=== PATIENT | male | born 1990 | race Hispanic/Latino ===

== ENCOUNTER 2016-05-22 21:42 | Emergency (ER) | payer OTHER ==
[2016-05-22 22:38] LABS: Urine Drugs of Abuse Note Disclamer
--- NOTE | 2016-05-22 22:56 | Cat Scan Report ---
FINAL REPORT PROCEDURE: CT HEAD/BRAIN WO CON TECHNIQUE: Computerized tomography of the head was performed without contrast material. HISTORY: new onset seizure COMPARISON: No prior studies are available for comparison. FINDINGS: Skull and scalp: Normal. Paranasal sinuses: There is fluid in the maxillary sinuses bilaterally.. Ventricles and subarachnoid spaces: Normal. Cerebrum: No evidence of hemorrhage, acute infarction or mass . Cerebellum and brainstem: No evidence of hemorrhage, acute infarction or mass. Vasculature: Normal. Comments: None. IMPRESSION: There is no intracranial abnormality. There is bilateral maxillary sinusitis.
[2016-05-22 23:09] LABS: Basophils % (Auto) 0.4 % (0.0-1.8); Eosinophils % (Auto) 4.4 % (0.0-4.3); Hematocrit 45.1 % (35.5-45.6); Hemoglobin 15.5 gm/dl (11.8-15.2); Mean Corpuscular HGB Conc 34 % (32-34); Mean Corpuscular Hemoglobin 30 pg (28-32); Mean Corpuscular Volume 88 fl (84-94); Platelet Count 229 K/mm3 (140-440); Red Blood Count 5.14 M/mm3 (3.65-5.03); Red Cell Distribution Width 12.9 % (13.2-15.2)
[2016-05-22 23:29] LABS: BUN/Creatinine Ratio 8.18; Blood Urea Nitrogen 9 mg/dL (9-20); Calcium 9.3 mg/dL (8.4-10.2); Carbon Dioxide 25 mmol/L (22-30); Chloride 103.2 mmol/L (98-107); Glucose 82 mg/dL (75-100); Magnesium 2.2 mg/dL (1.7-2.3); Sodium 143 mmol/L (137-145)
[2016-05-22 23:56] LABS: Anion Gap 19 mmol/L
--- NOTE | 2016-05-23 | Emergency Department Report ---
ED Seizure HPI - General Chief Complaint: Seizure Stated Complaint: SEIZURE Time Seen by Provider: 05/22/16 21:58 Source: patient, EMS Mode of arrival: Stretcher Limitations: No Limitations - History of Present Illness Initial Comments: 26-year-old male noticed a few past medical history presents to the hospital complaining of seizure. Patient has not had a seizure in the past. He is currently on Suboxone and was placed on Klonopin earlier this month. Patient ran out of Klonopin 1 week ago. History of opiate abuse in the past. Denies current substance abuse or alcohol abuse. No preceding symptoms prior to seizure. Patient had a generalized clonic tonic seizure for approximately 2 minutes followed by post ictal state. Patient is currently alert and oriented 3. Denies tongue laceration or urinary continence. denies symptoms currently. no pain reported - Related Data Previous Rx's Medication Instructions Recorded Last Taken Type Albuterol Sulfate [Ventolin HFA] 2 puff IH Q4H PRN #1 hfa.aer.ad 10/23/13 Unknown Rx Azithromycin [Zithromax Z-CLEMENT] 250 mg PO DAILY #6 tablet 10/23/13 Unknown Rx predniSONE [Deltasone] 3 tab PO QDAY #15 tab 10/23/13 Unknown Rx clonazePAM [ Klonopin] 0.5 mg PO BID #14 tab 05/23/16 Unknown Rx Allergies Allergy/AdvReac Type Severity Reaction Status Date / Time No Known Allergies Allergy Verified 05/22/16 21:55 ED Review of Systems ROS: Stated complaint: SEIZURE Other details as noted in HPI Comment: All other systems reviewed and negative Other: Constitutional: No fevers chills Eyes: No eye pain visual changes ENT: No ear pain or throat pain Neck: Denies pain Respiratory: Denies cough wheezing shortness of breath Cardiovascular: Denies chest pain, palpitations, syncope GI: Denies abdominal pain, nausea, vomiting, diarrhea : Denies dysuria, Musculoskeletal: Denies back pain Skin: Denies rash, lesions, erythema Neurologic: Denies headache, numbness, weakness Psychiatric: Denies suicidal ideation, hallucinations ED Past Medical Hx - Past Medical History Hx Seizures: Yes (klonpin withdraw/cocaine + on 05/22/16 visit) Additional medical history: pneumothorax - Surgical History Past Surgical History?: No Additional Surgical History: R. shoulder repair - Social History Smoking Status: Never Smoker Substance Use Type: Alcohol - Medications Home Medications: Home Medications Medication Instructions Recorded Confirmed Last Taken Type Albuterol Sulfate [Ventolin HFA] 2 puff IH Q4H PRN #1 hfa.aer.ad 10/23/13 Unknown Rx Azithromycin [Zithromax Z-CLEMENT] 250 mg PO DAILY #6 tablet 10/23/13 Unknown Rx predniSONE [Deltasone] 3 tab PO QDAY #15 tab 10/23/13 Unknown Rx clonazePAM [ Klonopin] 0.5 mg PO BID #14 tab 05/23/16 Unknown Rx ED Physical Exam - General Limitations: No Limitations - Other Other exam information: General: No limitations, patient is alert in no acute distress Head exam: Atraumatic, normocephalic Eyes exam: Normal appearance, pupils equal reactive to light, extraocular movements intact ENT: Moist mucous membrane, normal oropharynx Neck exam: Normal inspection, full range of motion, no meningismus nontender Respiratory exam: Clear to auscultation bilateral, no wheezes, rales, crackles Cardiovascular: Normal rate and rhythm, normal heart sounds Abdomen: Soft, nondistended, and nontender, with normal bowel sounds, no rebound, or guarding Extremity: Full range of motion normal inspection no deformity Back: Normal Inspection, full range of motion, no tenderness Neurologic: Alert, oriented x3, cranial nerves intact, no motor or sensory deficit Psychiatric: normal affect, normal mood Skin: Warm, dry, intact ED Course Vital Signs 05/22/16 22:00 Temperature 98 F Pulse Rate 89 Respiratory 16 Rate Blood Pressure 134/76 O2 Sat by Pulse 96 Oximetry ED Medical Decision Making - Lab Data Result diagrams: 05/22/16 22:38 05/22/16 22:38 Lab Results 05/22/16 05/22/16 05/22/16 Range/Units 22:20 22:27 22:38 WBC 11.0 (4.5-11.0) K/mm3 RBC 5.14 H (3.65-5.03) M/mm3 Hgb 15.5 H (11.8-15.2) gm/dl Hct 45.1 (35.5-45.6) % MCV 88 (84-94) fl MCH 30 (28-32) pg MCHC 34 (32-34) % RDW 12.9 L (13.2-15.2) % Plt Count 229 (140-440) K/mm3 Lymph % (Auto) 19.3 (13.4-35.0) % [place] % (Auto) 9.1 H (0.0-7.3) % Eos % (Auto) 4.4 H (0.0-4.3) % Baso % (Auto) 0.4 (0.0-1.8) % Lymph # 2.1 (1.2-5.4) K/mm3 [place] # 1.0 H (0.0-0.8) K/mm3 Eos # 0.5 H (0.0-0.4) K/mm3 Baso # 0.0 (0.0-0.1) K/mm3 Seg Neutrophils % 66.8 (40.0-70.0) % Seg Neutrophils # 7.3 (1.8-7.7) K/mm3 Sodium (137-145) mmol/L Potassium (3.6-5.0) mmol/L Chloride (98-107) mmol/L Carbon Dioxide (22-30) mmol/L Anion Gap mmol/L BUN (9-20) mg/dL Creatinine (0.8-1.5) mg/dL Estimated GFR ml/min BUN/Creatinine Ratio % Glucose (75-100) mg/dL POC Glucose 130 H (70-105) Calcium (8.4-10.2) mg/dL Magnesium (1.7-2.3) mg/dL Urine Opiates Screen Presumptive negative Urine Methadone Screen Presumptive negative Ur Barbiturates Screen Presumptive negative Ur Phencyclidine Scrn Presumptive negative Ur Amphetamines Screen Presumptive negative U Benzodiazepines Scrn Presumptive negative Urine Cocaine Screen Presumptive positive U Marijuana (THC) Screen Presumptive negative Drugs of Abuse Note Disclamer 05/22/16 Range/Units 22:38 WBC (4.5-11.0) K/mm3 RBC (3.65-5.03) M/mm3 Hgb (11.8-15.2) gm/dl Hct (35.5-45.6) % MCV (84-94) fl MCH (28-32) pg MCHC (32-34) % RDW (13.2-15.2) % Plt Count (140-440) K/mm3 Lymph % (Auto) (13.4-35.0) % [place] % (Auto) (0.0-7.3) % Eos % (Auto) (0.0-4.3) % Baso % (Auto) (0.0-1.8) % Lymph # (1.2-5.4) K/mm3 [place] # (0.0-0.8) K/mm3 Eos # (0.0-0.4) K/mm3 Baso # (0.0-0.1) K/mm3 Seg Neutrophils % (40.0-70.0) % Seg Neutrophils # (1.8-7.7) K/mm3 Sodium 143 (137-145) mmol/L Potassium 4.0 (3.6-5.0) mmol/L Chloride 103.2 (98-107) mmol/L Carbon Dioxide 25 (22-30) mmol/L Anion Gap 19 mmol/L BUN 9 (9-20) mg/dL Creatinine 1.1 (0.8-1.5) mg/dL Estimated GFR > 60 ml/min BUN/Creatinine Ratio 8.18 % Glucose 82 (75-100) mg/dL POC Glucose (70-105) Calcium 9.3 (8.4-10.2) mg/dL Magnesium 2.2 (1.7-2.3) mg/dL Urine Opiates Screen Urine Methadone Screen Ur Barbiturates Screen Ur Phencyclidine Scrn Ur Amphetamines Screen U Benzodiazepines Scrn Urine Cocaine Screen U Marijuana (THC) Screen Drugs of Abuse Note - Radiology Data Radiology results: report reviewed (CTA: Bilateral maxillary sinusitis no acute findings) - Medical Decision Making Patient seizure could be related to both Klonopin withdrawal possible cocaine use. ED workup otherwise unremarkable. Will be treated for incidental bilateral maxillary sinusitis of the abdominal CT. Patient given Klonopin here. Patient will be given a week's supply of Klonipin and to follow-up with his physician for prescription of a taper to prevent withdrawal seizures. He was encouraged to not abuse any substances including cocaine. Neurology follow- up also be encouraged. With this family outside the room patient admits to using cocaine a couple days ago but states it is not a regular occurrence. - Differential Diagnosis new-onset seizure, intracranial mass, drug reaction, Critical Care Time: No Critical care attestation.: If time is entered above; I have spent that time in minutes in the direct care of this critically ill patient, excluding procedure time. ED Disposition Clinical Impression: Seizure, Benzodiazepine withdrawal with complication, Cocaine use Disposition: DISCHARGED TO HOME OR SELFCARE Is pt being admited?: No Does the pt Need Aspirin: No Condition: Stable Instructions: New-Onset Seizure in Adults (ED), Benzodiazepine Abuse (ED), Cocaine Abuse (ED) Additional Instructions: Take the medication as prescribed. Return if symptoms worsen. Follow-up with your doctor before the medication runs out. You may need additional prescription for Klonopin gradual decrease in dose to prevent withdrawal seizures. Prescriptions: clonazePAM [ Klonopin] 0.5 mg PO BID #14 tab Referrals: your, psychiatrist [Other] - 3-5 Days TIM HUTSON MD [Staff Physician] - 3-5 Days (neurologist) Time of Disposition: 00:13
[2016-05-23 00:36] VITALS: BP 134/67
== END 2016-05-23 00:38 | disposition home or self-care (01) ==
LOC: ED 21:42
DX: R56.9 Unspecified convulsions (principal); F19.239 Other psychoactive substance dependence with withdrawal, unspecified; F14.90 Cocaine use, unspecified, uncomplicated
CPT/HCPCS: 36415; 70450; 80048; 82962; 83735; 85025; 99284; G0479; 80301

== ENCOUNTER 2017-07-28 06:45 | Inpatient (IN) | payer OTHER ==
[2017-07-28] MEDS ORDERED: ATIVAN IV ONE ×2 (07:56→21:44)
[2017-07-28] MEDS ORDERED: NACL 0.9% 1000 ML 2,000 ML IV ONE (07:56)
[2017-07-28 08:21] LABS: Basophils # (Auto) 0.1 K/mm3 (0.0-0.1); Basophils % (Auto) 0.4 % (0.0-1.8); Eosinophils % (Auto) 0.1 % (0.0-4.3); Hematocrit 48.6 % (35.5-45.6); Hemoglobin 16.3 gm/dl (11.8-15.2); Lymphocytes # (Auto) 1.7 K/mm3 (1.2-5.4); Lymphocytes % (Auto) 12.3 % (13.4-35.0); Mean Corpuscular HGB Conc 34 % (32-34); Mean Corpuscular Hemoglobin 29 pg (28-32); Mean Corpuscular Volume 87 fl (84-94); Monocytes # (Auto) 1.1 K/mm3 (0.0-0.8); Platelet Count 353 K/mm3 (140-440); Red Blood Count 5.57 M/mm3 (3.65-5.03); Red Cell Distribution Width 13.5 % (13.2-15.2)
[2017-07-28 08:38] LABS: Alanine Aminotransferase 37 units/L (7-56); Albumin 4.8 g/dL (3.9-5); BUN/Creatinine Ratio 20; Blood Urea Nitrogen 20 mg/dL (9-20); Calcium 9.8 mg/dL (8.4-10.2); Hemolysis Index 27
[2017-07-28] MEDS ORDERED: BENADRYL ONE (09:33)
[2017-07-28] MEDS ORDERED: BENADRYL IV ONE ×2 (09:34→19:40)
[2017-07-28] MEDS ORDERED: COGENTIN IM ONE (09:36)
--- NOTE | 2017-07-28 09:46 | Cat Scan Report ---
CT HEAD WITHOUT CONTRAST: HISTORY: Headache. TECHNIQUE: Sequential 2.5mm CT images. COMPARISON: 05/22/16. FINDINGS: Cerebral Parenchyma: Within normal limits. Cerebellum: Within normal limits. Brainstem: Within normal limits. Ventricles: Normal. Sella: Normal. Extra-axial spaces: Normal. Basal Cisterns: Normal. Intracranial Hemorrhage: None. Midline Shift: None. Calvarium: Normal. Sinuses: There is moderate mucosal thickening in the ethmoid and maxillary sinuses. Sinus disease has improved since 2016. Mastoid Air Cells: Normal. Visualized Orbits: Normal. IMPRESSION: Cranial CT scan within normal limits. Mild chronic sinus disease.
[2017-07-28] MEDS ORDERED: NACL 0.9% 1000 ML 1,000 ML IV ONE (12:59)
[2017-07-28 13:28] LABS: Bacteria,Urine 1+ /HPF (Negative); Bilirubin,Urine NEG (Negative); Blood,Urine NEG (Negative); Color,Urine Yellow (Yellow); Mucus,Urine FEW /HPF; Protein,Urine <15 mg/dL mg/dL (Negative); Urobilinogen,Urine < 2.0 mg/dL (<2.0)
[2017-07-28 13:40] LABS: Cannabinoid Screen,Urine PRESUMPTIVE NEGATIVE; Cocaine Screen,Urine PRESUMPTIVE NEGATIVE; Methadone Screen,Urine PRESUMPTIVE NEGATIVE; Opiate Screen,Urine PRESUMPTIVE NEGATIVE
[2017-07-28 14:00] LABS: Amphetamine Screen,Urine PRESUMPTIVE POSITIVE; Benzodiazepines Screen,Urine PRESUMPTIVE POSITIVE
--- NOTE | 2017-07-28 16:43 | Emergency Department Report ---
HPI - General Chief Complaint: Medical Clearance Time Seen by Provider: 07/28/17 07:55 - HPI HPI: The patient is a 27-year-old male who presents from [place] for medical clearance. The patient presented to [place] for treatment of methamphetamine abuse, and developed agitation and AMS. The patient admits to constant severe dizziness and generalized weakness since last night, exacerbated with position changes and exertion. The patient denies fever, head injury, headache, neck pain, neck stiffness, neuro deficits, homicidal ideations , or auditory or visual hallucinations. ED Past Medical Hx - Past Medical History Previous Medical History?: Yes Hx Seizures: Yes (klonpin withdraw/cocaine + on 05/22/16 visit) Additional medical history: pneumothorax - Surgical History Past Surgical History?: Yes Additional Surgical History: R. shoulder repair - Social History Smoking Status: Never Smoker Substance Use Type: Methamphetamines - Medications Home Medications: Home Medications Medication Instructions Recorded Confirmed Last Taken Type Albuterol Sulfate [Ventolin HFA] 2 puff IH Q4H PRN #1 hfa.aer.ad 10/23/13 Unknown Rx Azithromycin [Zithromax Z-CLEMENT] 250 mg PO DAILY #6 tablet 10/23/13 Unknown Rx predniSONE [Deltasone] 3 tab PO QDAY #15 tab 10/23/13 Unknown Rx clonazePAM [ Klonopin] 0.5 mg PO BID #14 tab 05/23/16 Unknown Rx ED Review of Systems ROS: Stated complaint: WITHDRAWLS Other details as noted in HPI Constitutional: reports dizziness and weakness denies: fever ENT: denies: throat or neck pain Respiratory: denies: cough, shortness of breath Cardiovascular: denies: chest pain Endocrine: denies unexplained weight loss or gain Gastrointestinal: denies: abdominal pain, nausea Genitourinary: denies: dysuria Musculoskeletal: denies: leg swelling Skin: denies: rash Neurological: denies: headache Hematological/Lymphatic: denies: easy bleeding or easy bruising Psych: agitation reported per [facility] denies sadness or hopelessness Physical Exam - Physical Exam Vital Signs: Vital Signs 07/28/17 07/28/17 07/28/17 07:38 07:53 08:00 Temperature 98.8 F Pulse Rate 129 H 103 H Respiratory 18 19 Rate Blood Pressure 87/63 127/63 O2 Sat by Pulse 97 96 95 Oximetry 03/01/0707/28/17 07/28/17 08:05 08:31 09:00 Temperature Pulse Rate 91 H 84 Respiratory 14 13 16 Rate Blood Pressure 125/57 129/69 O2 Sat by Pulse 96 94 96 Oximetry 07/28/17 07/28/17 07/28/17 09:31 10:01 10:31 Temperature Pulse Rate 115 H Respiratory 23 27 H 15 Rate Blood Pressure 92/75 117/49 130/68 O2 Sat by Pulse 95 98 94 Oximetry 07/28/17 07/28/17 07/28/17 11:01 11:31 12:01 Temperature Pulse Rate 102 H 107 H Respiratory 28 H 19 22 Rate Blood Pressure 122/69 147/63 147/63 O2 Sat by Pulse 95 96 97 Oximetry 07/28/17 07/28/17 07/28/17 12:31 13:01 13:31 Temperature Pulse Rate 90 111 H 95 H Respiratory 29 H 19 23 Rate Blood Pressure 108/53 108/53 157/92 O2 Sat by Pulse Oximetry 07/28/17 07/28/17 14:01 14:31 Temperature Pulse Rate 84 84 Respiratory 14 14 Rate Blood Pressure 125/97 125/97 O2 Sat by Pulse Oximetry Physical Exam: General: well-nourished, well-developed, no acute distress Head: Normocephalic, atraumatic Eyes: normal sclera, EOMI, PERRL ENT: Mucous membranes are pale and dry Neck: No neck stiffness, no cervical adenopathy Respiratory: Breath sounds equal bilaterally, no wheezing, rales, or rhonchi Cardio: S1 and S2 present, no murmurs, rubs, gallops, capillary refill is delayed Abdomen: Normoactive bowel sounds, soft abdomen, no tenderness Chest WALL/Back: No tenderness to palpation of the chest wall, no CVA tenderness with percussion Musc: No pitting edema Skin: No rash Neuro: Patient drowsy, arousable, gag reflex intact, no obvious gross sensation or motor deficits on neuro exam Psych: Normal affect ED Course Vital Signs 07/28/17 07/28/17 07/28/17 07:38 07:53 08:00 Temperature 98.8 F Pulse Rate 129 H 103 H Respiratory 18 19 Rate Blood Pressure 87/63 127/63 O2 Sat by Pulse 97 96 95 Oximetry 07/28/17 07/28/17 07/28/17 08:05 08:31 09:00 Temperature Pulse Rate 91 H 84 Respiratory 14 13 16 Rate Blood Pressure 125/57 129/69 O2 Sat by Pulse 96 94 96 Oximetry 07/28/17 07/28/17 07/28/17 09:31 10:01 10:31 Temperature Pulse Rate 115 H Respiratory 23 27 H 15 Rate Blood Pressure 92/75 117/49 130/68 O2 Sat by Pulse 95 98 94 Oximetry 07/28/17 07/28/17 07/28/17 11:01 11:31 12:01 Temperature Pulse Rate 102 H 107 H Respiratory 28 H 19 22 Rate Blood Pressure 122/69 147/63 147/63 O2 Sat by Pulse 95 96 97 Oximetry 07/28/17 07/28/17 07/28/17 12:31 13:01 13:31 Temperature Pulse Rate 90 111 H 95 H Respiratory 29 H 19 23 Rate Blood Pressure 108/53 108/53 157/92 O2 Sat by Pulse Oximetry 07/28/17 07/28/17 14:01 14:31 Temperature Pulse Rate 84 84 Respiratory 14 14 Rate Blood Pressure 125/97 125/97 O2 Sat by Pulse Oximetry ED Medical Decision Making - Lab Data Result diagrams: 07/28/17 08:03 07/28/17 08:03 - Medical Decision Making The patient was seen and examined by myself. The patient is placed on a playground monitor and continuous pulse ox. On initial evaluation, the patient was found to be in no distress. Evaluation orders were placed. The patient given Ativan for psychomotor agitation, and IV Benadryl and IM Cogentin for treatment of suspected EPS symptoms. The patient is given normal saline fluid bolus for treatment of dehydration and tachycardia. The patient is given Haldol prior to arrival. Lab results reveal leukocytosis and elevated creatinine of 5400, consistent with acute rhabdomyolysis. The patient is given additional normal saline fluid bolus for treatment of his rhabdomyolysis. CT scan the head is negative for acute intracranial disease process. Dr. Sepulveda the physician on- call for the hospitalist service was contacted. He agreed to admit the patient for further treatment and close monitoring. The ED admit order was placed. The patient was admitted in guarded condition. Critical care attestation.: If time is entered above; I have spent that time in minutes in the direct care of this critically ill patient, excluding procedure time. ED Disposition Clinical Impression: Dehydration, Amphetamine abuse Rhabdomyolysis Qualifiers: Rhabdomyolysis type: non-traumatic Qualified Code(s): M62.82 - Rhabdomyolysis Altered mental status Qualifiers: Altered mental status type: delirium Qualified Code(s): R41.0 - Disorientation , unspecified Disposition: 09 OP ADMIT IP TO THIS HOSP Is pt being admited?: Yes Does the pt Need Aspirin: Yes Condition: Serious Referrals: PRIMARY CARE, [Primary Care Provider] - 3-5 Days Time of Disposition: 16:55
[2017-07-28] MEDS ORDERED: ATIVAN ONE (21:16)
--- NOTE | 2017-07-28 23:14 | History and Physical Report ---
History of Present Illness Date of examination: 07/28/17 Date of admission: 07/28/17 Chief complaint: AMS 1 day History of present illness: - HPI HPI: The patient is a 27-year-old male who presents from [place] for medical clearance. The patient presented to [place] for treatment of methamphetamine abuse, and developed agitation and AMS. The patient admits to constant severe dizziness and generalized weakness since last night, exacerbated with position changes and exertion. The patient denies fever, head injury, headache, neck pain, neck stiffness, neuro deficits, homicidal ideations , or auditory or visual hallucinations. Past Medical History Previous Medical History?: Yes Hx Seizures: Yes (klonpin withdraw/cocaine + on 05/22/16 visit) Additional medical history: pneumothorax Surgical History Past Surgical History?: Yes Additional Surgical History: R. shoulder repair - Social History Smoking Status: Never Smoker Substance Use Type: Methamphetamines - Medications Home Medications: Home Medications Medication Instructions Recorded Confirmed Last Taken Type Albuterol Sulfate [Ventolin HFA] 2 puff IH Q4H PRN #1 hfa.aer.ad 10/23/13 Unknown Rx Azithromycin [Zithromax Z-CLEMENT] 250 mg PO DAILY #6 tablet 10/23/13 Unknown Rx predniSONE [Deltasone] 3 tab PO QDAY #15 tab 10/23/13 Unknown Rx clonazePAM [ Klonopin] 0.5 mg PO BID #14 tab 05/23/16 Unknown Rx Review of Systems ROS: Stated complaint: WITHDRAWLS Other details as noted in HPI Constitutional: reports dizziness and weakness denies: fever ENT: denies: throat or neck pain Respiratory: denies: cough, shortness of breath Cardiovascular: denies: chest pain Endocrine: denies unexplained weight loss or gain Gastrointestinal: denies: abdominal pain, nausea Genitourinary: denies: dysuria Musculoskeletal: denies: leg swelling Skin: denies: rash Neurological: denies: headache Hematological/Lymphatic: denies: easy bleeding or easy bruising Psych: agitation reported per [facility] denies sadness or hopelessness Medications and Allergies Allergies Allergy/AdvReac Type Severity Reaction Status Date / Time No Known Allergies Allergy Verified 07/28/17 07:42 Home Medications Medication Instructions Recorded Confirmed Last Taken Type No Known Home Medications [No 07/28/17 07/28/17 Unknown History Reported Home Medications] Exam - Constitutional Vitals: Temp Pulse Resp BP Pulse Ox 98.8 F 84 15 123/85 98 07/28/17 07:38 07/28/17 21:00 07/28/17 21:00 07/28/17 21:00 07/28/17 21:00 General appearance: Present: mild distress - EENT Eyes: Present: PERRL ENT: hearing intact, clear oral mucosa - Neck Neck: Present: supple - Cardiovascular Heart rate: 80 Rhythm: regular - Extremities Extremities: no ischemia, pulses intact Peripheral Pulses: within normal limits - Abdominal General gastrointestinal: Present: soft, non-tender Male genitourinary: Present: deferred - Rectal Rectal Exam: deferred - Integumentary Integumentary: Present: clear, warm, dry - Musculoskeletal Musculoskeletal: strength equal bilaterally - Psychiatric Psychiatric: agitated - Neurologic Neurologic: CNII-XII intact, gait normal - Allied Health Allied health notes reviewed: nursing, case management Results - Labs CBC & Chem 7: 07/28/17 08:03 07/28/17 08:03 Labs: Laboratory Last Values WBC 13.7 K/mm3 (4.5-11.0) H 07/28/17 08:03 RBC 5.57 M/mm3 (3.65-5.03) H 07/28/17 08:03 Hgb 16.3 gm/dl (11.8-15.2) H 07/28/17 08:03 Hct 48.6 % (35.5-45.6) H 07/28/17 08:03 MCV 87 fl (84-94) 07/28/17 08:03 MCH 29 pg (28-32) 07/28/17 08:03 MCHC 34 % (32-34) 07/28/17 08:03 RDW 13.5 % (13.2-15.2) 07/28/17 08:03 Plt Count 353 K/mm3 (140-440) 07/28/17 08:03 Lymph % (Auto) 12.3 % (13.4-35.0) L 07/28/17 08:03 [place] % (Auto) 8.0 % (0.0-7.3) H 07/28/17 08:03 Eos % (Auto) 0.1 % (0.0-4.3) 07/28/17 08:03 Baso % (Auto) 0.4 % (0.0-1.8) 07/28/17 08:03 Lymph # 1.7 K/mm3 (1.2-5.4) 07/28/17 08:03 [place] # 1.1 K/mm3 (0.0-0.8) H 07/28/17 08:03 Eos # 0.0 K/mm3 (0.0-0.4) 07/28/17 08:03 Baso # 0.1 K/mm3 (0.0-0.1) 07/28/17 08:03 Seg Neutrophils % 79.2 % (40.0-70.0) H 07/28/17 08:03 Seg Neutrophils # 10.8 K/mm3 (1.8-7.7) H 07/28/17 08:03 Sodium 142 mmol/L (137-145) 07/28/17 08:03 Potassium 4.2 mmol/L (3.6-5.0) 07/28/17 08:03 Chloride 100.2 mmol/L (98-107) 07/28/17 08:03 Carbon Dioxide 19 mmol/L (22-30) L 07/28/17 08:03 Anion Gap 27 mmol/L 07/28/17 08:03 BUN 20 mg/dL (9-20) 07/28/17 08:03 Creatinine 1.0 mg/dL (0.8-1.5) 07/28/17 08:03 Estimated GFR > 60 ml/min 07/28/17 08:03 BUN/Creatinine Ratio 20 % 07/28/17 08:03 Glucose 79 mg/dL (75-100) 07/28/17 08:03 Lactic Acid 1.30 mmol/L (0.7-2.0) 07/28/17 13:05 Calcium 9.8 mg/dL (8.4-10.2) 07/28/17 08:03 Total Bilirubin 0.60 mg/dL (0.1-1.2) 07/28/17 08:03 AST 101 units/L (5-40) H 07/28/17 08:03 ALT 37 units/L (7-56) 07/28/17 08:03 Alkaline Phosphatase 73 units/L (35-129) 07/28/17 08:03 Total Creatine Kinase 5461 units/L (55-170) H 07/28/17 13:05 Total Protein 8.3 g/dL (6.3-8.2) H 07/28/17 08:03 Albumin 4.8 g/dL (3.9-5) 07/28/17 08:03 Albumin/Globulin Ratio 1.4 % 07/28/17 08:03 TSH 1.140 mlU/mL (0.270-4.200) 07/28/17 08:03 Urine Color Yellow (Yellow) 07/28/17 13:09 Urine Turbidity Clear (Clear) 07/28/17 13:09 Urine pH 5.0 (5.0-7.0) 07/28/17 13:09 Ur Specific [place] 1.025 (1.003-1.030) 07/28/17 13:09 Urine Protein <15 mg/dl mg/dL (Negative) 07/28/17 13:09 Urine Glucose (UA) Neg mg/dL (Negative) 07/28/17 13:09 Urine Ketones 80 mg/dL (Negative) 07/28/17 13:09 Urine Blood Neg (Negative) 07/28/17 13:09 Urine Nitrite Neg (Negative) 07/28/17 13:09 Urine Bilirubin Neg (Negative) 07/28/17 13:09 Urine Urobilinogen < 2.0 mg/dL (<2.0) 07/28/17 13:09 Ur Leukocyte Esterase Neg (Negative) 07/28/17 13:09 Urine WBC (Auto) 1.0 /HPF (0.0-6.0) 07/28/17 13:09 Urine RBC (Auto) 2.0 /HPF (0.0-6.0) 07/28/17 13:09 Urine Bacteria (Auto) 1+ /HPF (Negative) 07/28/17 13:09 Urine Mucus Few /HPF 07/28/17 13:09 Urine Opiates Screen Presumptive negative 07/28/17 13:09 Urine Methadone Screen Presumptive negative 07/28/17 13:09 Ur Barbiturates Screen Presumptive negative 07/28/17 13:09 Ur Phencyclidine Scrn Presumptive negative 07/28/17 13:09 Ur Amphetamines Screen Presumptive positive 07/28/17 13:09 U Benzodiazepines Scrn Presumptive positive 07/28/17 13:09 Urine Cocaine Screen Presumptive negative 07/28/17 13:09 U Marijuana (THC) Screen Presumptive negative 07/28/17 13:09 Drugs of Abuse Note Disclamer 07/28/17 13:09 Plasma/Serum Alcohol < 0.01 % (0-0.07) 07/28/17 08:03 Short CBC 07/28/17 Range/Units 08:03 WBC 13.7 H (4.5-11.0) K/mm3 Hgb 16.3 H (11.8-15.2) gm/dl Hct 48.6 H (35.5-45.6) % Plt Count 353 (140-440) K/mm3 BMP 07/28/17 08:03 Sodium 142 Potassium 4.2 Chloride 100.2 Carbon Dioxide 19 L BUN 20 Creatinine 1.0 Glucose 79 Calcium 9.8 Cardiac Enzymes 07/28/17 07/28/17 07/28/17 Range/Units 08:03 13:05 23:43 Total Creatine Kinase 5402 H 5461 H 4396 H (55-170) units/L Liver Function 07/28/17 Range/Units 08:03 Total Bilirubin 0.60 (0.1-1.2) mg/dL AST 101 H (5-40) units/L ALT 37 (7-56) units/L Alkaline Phosphatase 73 (35-129) units/L Albumin 4.8 (3.9-5) g/dL Urine 07/28/17 Range/Units 13:09 Urine Color Yellow (Yellow) Urine pH 5.0 (5.0-7.0) Ur Specific [place] 1.025 (1.003-1.030) Urine Protein <15 mg/dl (Negative) mg/dL Urine Glucose (UA) Neg (Negative) mg/dL - Imaging and Cardiology EKG: report reviewed (NSR) Assessment and Plan Advance Directives: Yes (Full code) VTE prophylaxis?: Chemical Plan of care discussed with patient/family: Yes - Patient Problems (1) Rhabdomyolysis Current Visit: Yes Status: Acute Qualifiers: Rhabdomyolysis type: non-traumatic Qualified Code(s): M62.82 - Rhabdomyolysis Plan to address problem: IV fluids for now Monitor CK q12h (2) Encephalopathy acute Current Visit: Yes Status: Acute Plan to address problem: Sec to Polysubstance abuse and Withdrawal [facility] protocol (3) Amphetamine abuse Current Visit: Yes Status: Chronic Plan to address problem: Will get consult (4) Dehydration Current Visit: Yes Status: Acute Plan to address problem: IV fluids (5) DVT prophylaxis Current Visit: Yes Status: Acute Plan to address problem: On Lovenox
[2017-07-28] MEDS ORDERED: ZOFRAN IV PRN (23:16)
[2017-07-28] MEDS ORDERED: DILAUDID IV PRN (23:16)
[2017-07-28] MEDS ORDERED: TYLENOL PO PRN (23:16)
[2017-07-28] MEDS ORDERED: SODIUM CHLORIDE FLUSH SYRINGE 10 ML IV PRN (23:16)
[2017-07-28] MEDS ORDERED: PERCOCET 5/325 PO PRN (23:16)
[2017-07-28] MEDS ORDERED: D5NS 1,000 ML IV SCH (23:45)
[2017-07-29 07:58] LABS: Basophils % (Auto) 0.1 % (0.0-1.8); Hemoglobin 13.7 gm/dl (11.8-15.2); Lymphocytes # (Auto) 2.4 K/mm3 (1.2-5.4); Lymphocytes % (Auto) 18.4 % (13.4-35.0); Mean Corpuscular HGB Conc 33 % (32-34); Mean Corpuscular Hemoglobin 29 pg (28-32); Mean Corpuscular Volume 87 fl (84-94); Monocytes # (Auto) 1.3 K/mm3 (0.0-0.8); Monocytes % (Auto) 10.1 % (0.0-7.3); Platelet Count 299 K/mm3 (140-440); Red Blood Count 4.75 M/mm3 (3.65-5.03); Red Cell Distribution Width 13.4 % (13.2-15.2)
[2017-07-29 08:16] LABS: Alanine Aminotransferase 34 units/L (7-56); Albumin 4.1 g/dL (3.9-5); BUN/Creatinine Ratio 23; Blood Urea Nitrogen 16 mg/dL (9-20); Hemolysis Index 7
--- NOTE | 2017-07-29 09:05 | Progress Note ---
Assessment and Plan Assessment and plan: The patient is a 27-year-old male who presents from [place] for medical clearance. The patient presented to [place] for treatment of methamphetamine abuse, and developed agitation and AMS. The patient admits to constant severe dizziness and generalized weakness, exacerbated with position changes and exertion. T Rhabdomyolysis continue IVF, keep room cool toxic and metabolic Encephalopathy acute: Sec to Polysubstance abuse and Withdrawal continue supportive care Amphetamine abuse Will get consult cessation counseling was provided Dehydration IV fluids DVT prophylaxis On Lovenox History Interval history: has been somnolent, but received benzos no agitation, no fever, no vomitining, no seizure, no complaints of cp, sob or cough Hospitalist Physical - Constitutional Vitals: Temp Pulse Resp BP Pulse Ox 98.9 F 61 20 124/73 93 07/29/17 08:31 07/29/17 08:31 07/29/17 08:31 07/29/17 08:31 07/29/17 08:31 General appearance: Present: mild distress - EENT Eyes: Present: PERRL ENT: hearing intact - Neck Neck: Present: supple - Respiratory Respiratory effort: normal Respiratory: bilateral: CTA - Cardiovascular Rhythm: regular Heart Sounds: Present: S1 & S2 - Extremities Extremities: no ischemia Peripheral Pulses: within normal limits - Abdominal General gastrointestinal: soft, non-tender - Integumentary Integumentary: Present: clear, warm - Psychiatric Psychiatric: appropriate mood/affect, cooperative - Neurologic Neurologic: CNII-XII intact, moves all extremities Results - Labs CBC & Chem 7: 07/29/17 07:48 07/29/17 07:48 Labs: Laboratory Last Values WBC 13.1 K/mm3 (4.5-11.0) H 07/29/17 07:48 RBC 4.75 M/mm3 (3.65-5.03) 07/29/17 07:48 Hgb 13.7 gm/dl (11.8-15.2) 07/29/17 07:48 Hct 48.6 % (35.5-45.6) H 07/28/17 08:03 MCV 87 fl (84-94) 07/29/17 07:48 MCH 29 pg (28-32) 07/29/17 07:48 MCHC 33 % (32-34) 07/29/17 07:48 RDW 13.4 % (13.2-15.2) 07/29/17 07:48 Plt Count 299 K/mm3 (140-440) 07/29/17 07:48 Lymph % (Auto) 18.4 % (13.4-35.0) 07/29/17 07:48 [place] % (Auto) 10.1 % (0.0-7.3) H 07/29/17 07:48 Eos % (Auto) 0.0 % (0.0-4.3) 07/29/17 07:48 Baso % (Auto) 0.1 % (0.0-1.8) 07/29/17 07:48 Lymph # 2.4 K/mm3 (1.2-5.4) 07/29/17 07:48 [place] # 1.3 K/mm3 (0.0-0.8) H 07/29/17 07:48 Eos # 0.0 K/mm3 (0.0-0.4) 07/29/17 07:48 Baso # 0.0 K/mm3 (0.0-0.1) 07/29/17 07:48 Seg Neutrophils % 71.4 % (40.0-70.0) H 07/29/17 07:48 Seg Neutrophils # 9.4 K/mm3 (1.8-7.7) H 07/29/17 07:48 Sodium 140 mmol/L (137-145) 07/29/17 07:48 Potassium 4.2 mmol/L (3.6-5.0) 07/29/17 07:48 Chloride 102.8 mmol/L (98-107) 07/29/17 07:48 Carbon Dioxide 23 mmol/L (22-30) 07/29/17 07:48 Anion Gap 18 mmol/L 07/29/17 07:48 BUN 16 mg/dL (9-20) 07/29/17 07:48 Creatinine 0.7 mg/dL (0.8-1.5) L 07/29/17 07:48 Estimated GFR > 60 ml/min 07/29/17 07:48 BUN/Creatinine Ratio 23 % 07/29/17 07:48 Glucose 105 mg/dL (75-100) H 07/29/17 07:48 Hemoglobin A1c 5.4 % (4-6) 07/28/17 23:43 Lactic Acid 1.30 mmol/L (0.7-2.0) 07/28/17 13:05 Calcium 9.0 mg/dL (8.4-10.2) 07/29/17 07:48 Total Bilirubin 0.60 mg/dL (0.1-1.2) 07/29/17 07:48 AST 73 units/L (5-40) H 07/29/17 07:48 ALT 34 units/L (7-56) 07/29/17 07:48 Alkaline Phosphatase 57 units/L (35-129) 07/29/17 07:48 Total Creatine Kinase 4396 units/L (55-170) H 07/28/17 23:43 Total Protein 6.9 g/dL (6.3-8.2) 07/29/17 07:48 Albumin 4.1 g/dL (3.9-5) 07/29/17 07:48 Albumin/Globulin Ratio 1.5 % 07/29/17 07:48 TSH 1.140 mlU/mL (0.270-4.200) 07/28/17 08:03 Urine Color Yellow (Yellow) 07/28/17 13:09 Urine Turbidity Clear (Clear) 07/28/17 13:09 Urine pH 5.0 (5.0-7.0) 07/28/17 13:09 Ur Specific [place] 1.025 (1.003-1.030) 07/28/17 13:09 Urine Protein <15 mg/dl mg/dL (Negative) 07/28/17 13:09 Urine Glucose (UA) Neg mg/dL (Negative) 07/28/17 13:09 Urine Ketones 80 mg/dL (Negative) 07/28/17 13:09 Urine Blood Neg (Negative) 07/28/17 13:09 Urine Nitrite Neg (Negative) 07/28/17 13:09 Urine Bilirubin Neg (Negative) 07/28/17 13:09 Urine Urobilinogen < 2.0 mg/dL (<2.0) 07/28/17 13:09 Ur Leukocyte Esterase Neg (Negative) 07/28/17 13:09 Urine WBC (Auto) 1.0 /HPF (0.0-6.0) 07/28/17 13:09 Urine RBC (Auto) 2.0 /HPF (0.0-6.0) 07/28/17 13:09 Urine Bacteria (Auto) 1+ /HPF (Negative) 07/28/17 13:09 Urine Mucus Few /HPF 07/28/17 13:09 Urine Opiates Screen Presumptive negative 07/28/17 13:09 Urine Methadone Screen Presumptive negative 07/28/17 13:09 Ur Barbiturates Screen Presumptive negative 07/28/17 13:09 Ur Phencyclidine Scrn Presumptive negative 07/28/17 13:09 Ur Amphetamines Screen Presumptive positive 07/28/17 13:09 U Benzodiazepines Scrn Presumptive positive 07/28/17 13:09 Urine Cocaine Screen Presumptive negative 07/28/17 13:09 U Marijuana (THC) Screen Presumptive negative 07/28/17 13:09 Drugs of Abuse Note Disclamer 07/28/17 13:09 Plasma/Serum Alcohol < 0.01 % (0-0.07) 07/28/17 08:03
[2017-07-29 10:30] LABS: Hematocrit 41.5 % (35.5-45.6)
[2017-07-29] MEDS: HEPARIN SUB-Q SCH ×2 (18:40→21:33)
[2017-07-29] MEDS: SODIUM CHLORIDE FLUSH SYRINGE 10 ML IV SCH ×2 (19:28→21:33)
[2017-07-29] MEDS: D5/0.45NS 1,000 ML IV SCH (21:33)
[2017-07-30] MEDS: D5/0.45NS 1,000 ML IV SCH ×2 (04:26→10:42)
[2017-07-30 08:00] LABS: BUN/Creatinine Ratio 14; Blood Urea Nitrogen 11 mg/dL (9-20); Calcium 8.5 mg/dL (8.4-10.2); Hemolysis Index 6
--- NOTE | 2017-07-30 09:10 | Progress Note ---
Hospitalist Physical - Constitutional Vitals: Temp Pulse Resp BP Pulse Ox 98.2 F 55 L 18 109/50 97 07/30/17 07:45 07/30/17 07:45 07/30/17 07:45 07/30/17 07:45 07/30/17 07:45 General appearance: Present: mild distress Results - Labs CBC & Chem 7: 07/29/17 07:48 07/30/17 06:43 Labs: Laboratory Last Values WBC 13.1 K/mm3 (4.5-11.0) H 07/29/17 07:48 RBC 4.75 M/mm3 (3.65-5.03) 07/29/17 07:48 Hgb 13.7 gm/dl (11.8-15.2) 07/29/17 07:48 Hct 41.5 % (35.5-45.6) D 07/29/17 07:48 MCV 87 fl (84-94) 07/29/17 07:48 MCH 29 pg (28-32) 07/29/17 07:48 MCHC 33 % (32-34) 07/29/17 07:48 RDW 13.4 % (13.2-15.2) 07/29/17 07:48 Plt Count 299 K/mm3 (140-440) 07/29/17 07:48 Lymph % (Auto) 18.4 % (13.4-35.0) 07/29/17 07:48 [place] % (Auto) 10.1 % (0.0-7.3) H 07/29/17 07:48 Eos % (Auto) 0.0 % (0.0-4.3) 07/29/17 07:48 Baso % (Auto) 0.1 % (0.0-1.8) 07/29/17 07:48 Lymph # 2.4 K/mm3 (1.2-5.4) 07/29/17 07:48 [place] # 1.3 K/mm3 (0.0-0.8) H 07/29/17 07:48 Eos # 0.0 K/mm3 (0.0-0.4) 07/29/17 07:48 Baso # 0.0 K/mm3 (0.0-0.1) 07/29/17 07:48 Seg Neutrophils % 71.4 % (40.0-70.0) H 07/29/17 07:48 Seg Neutrophils # 9.4 K/mm3 (1.8-7.7) H 07/29/17 07:48 Sodium 144 mmol/L (137-145) 07/30/17 06:43 Potassium 3.9 mmol/L (3.6-5.0) 07/30/17 06:43 Chloride 106.1 mmol/L (98-107) 07/30/17 06:43 Carbon Dioxide 24 mmol/L (22-30) 07/30/17 06:43 Anion Gap 18 mmol/L 07/30/17 06:43 BUN 11 mg/dL (9-20) 07/30/17 06:43 Creatinine 0.8 mg/dL (0.8-1.5) 07/30/17 06:43 Estimated GFR > 60 ml/min 07/30/17 06:43 BUN/Creatinine Ratio 14 % 07/30/17 06:43 Glucose 109 mg/dL (75-100) H 07/30/17 06:43 Hemoglobin A1c 5.4 % (4-6) 07/28/17 23:43 Lactic Acid 1.30 mmol/L (0.7-2.0) 07/28/17 13:05 Calcium 8.5 mg/dL (8.4-10.2) 07/30/17 06:43 Total Bilirubin 0.60 mg/dL (0.1-1.2) 07/29/17 07:48 AST 73 units/L (5-40) H 07/29/17 07:48 ALT 34 units/L (7-56) 07/29/17 07:48 Alkaline Phosphatase 57 units/L (35-129) 07/29/17 07:48 Total Creatine Kinase 1092 units/L (55-170) H 07/30/17 06:43 Total Protein 6.9 g/dL (6.3-8.2) 07/29/17 07:48 Albumin 4.1 g/dL (3.9-5) 07/29/17 07:48 Albumin/Globulin Ratio 1.5 % 07/29/17 07:48 TSH 1.140 mlU/mL (0.270-4.200) 07/28/17 08:03 Urine Color Yellow (Yellow) 07/28/17 13:09 Urine Turbidity Clear (Clear) 07/28/17 13:09 Urine pH 5.0 (5.0-7.0) 07/28/17 13:09 Ur Specific [place] 1.025 (1.003-1.030) 07/28/17 13:09 Urine Protein <15 mg/dl mg/dL (Negative) 07/28/17 13:09 Urine Glucose (UA) Neg mg/dL (Negative) 07/28/17 13:09 Urine Ketones 80 mg/dL (Negative) 07/28/17 13:09 Urine Blood Neg (Negative) 07/28/17 13:09 Urine Nitrite Neg (Negative) 07/28/17 13:09 Urine Bilirubin Neg (Negative) 07/28/17 13:09 Urine Urobilinogen < 2.0 mg/dL (<2.0) 07/28/17 13:09 Ur Leukocyte Esterase Neg (Negative) 07/28/17 13:09 Urine WBC (Auto) 1.0 /HPF (0.0-6.0) 07/28/17 13:09 Urine RBC (Auto) 2.0 /HPF (0.0-6.0) 07/28/17 13:09 Urine Bacteria (Auto) 1+ /HPF (Negative) 07/28/17 13:09 Urine Mucus Few /HPF 07/28/17 13:09 Urine Opiates Screen Presumptive negative 07/28/17 13:09 Urine Methadone Screen Presumptive negative 07/28/17 13:09 Ur Barbiturates Screen Presumptive negative 07/28/17 13:09 Ur Phencyclidine Scrn Presumptive negative 07/28/17 13:09 Ur Amphetamines Screen Presumptive positive 07/28/17 13:09 U Benzodiazepines Scrn Presumptive positive 07/28/17 13:09 Urine Cocaine Screen Presumptive negative 07/28/17 13:09 U Marijuana (THC) Screen Presumptive negative 07/28/17 13:09 Drugs of Abuse Note Disclamer 07/28/17 13:09 Plasma/Serum Alcohol < 0.01 % (0-0.07) 07/28/17 08:03
[2017-07-30] MEDS: HEPARIN SUB-Q SCH (10:43)
[2017-07-30] MEDS: SODIUM CHLORIDE FLUSH SYRINGE 10 ML IV SCH (10:50)
--- NOTE | 2017-07-30 11:34 | Discharge Summary ---
Providers - Providers Date of Admission: 07/28/17 23:16 Attending physician: LANDEN PENG MD 07/29/17 06:45 Consult to Mental Health [CONS] Routine Reason For Exam: polysubstance abuse Place consult to:: y Notified:: PSYCH Phone number called:: [phone] Was contact made?: Yes Time called:: 09:04 Primary care physician: MEDIA MARKETING COORDINATOR Hospitalization Condition: Serious Hospital course: The patient is a 27-year-old male who presents from [place] for medical clearance. The patient presented to [place] for treatment of methamphetamine abuse, and developed agitation and AMS. The patient admits to constant severe dizziness and generalized weakness, exacerbated with position changes and exertion. He was found to have acute rhabdomyolysis is, toxic metabolic encephalopathy. With the dehydration. The patient received IV fluids. He clinically improved and he is being discharged home and he is advised to stay cool places and to avoid excessive exertion. The patient will decide if he wants to return to [place] for detox to outpatient detox. Discharge diagnoses non traumatic Rhabdomyolysis toxic and metabolic Encephalopathy acute: Amphetamine abuse Dehydration Disposition: DC-01 TO HOME OR SELFCARE Time spent for discharge: 33 minutes Core Measure Documentation - Palliative Care Palliative Care/ Comfort Measures: Not Applicable - Core Measures Any of the following diagnoses?: none Exam - Constitutional Vitals: Temp Pulse Resp BP Pulse Ox 98.2 F 55 L 18 109/50 97 07/30/17 07:45 07/30/17 07:45 07/30/17 07:45 07/30/17 07:45 07/30/17 07:45 General appearance: Present: no acute distress, well-nourished - EENT Eyes: Present: PERRL ENT: hearing intact, clear oral mucosa - Neck Neck: Present: supple, normal ROM - Respiratory Respiratory effort: normal Respiratory: bilateral: CTA - Cardiovascular Heart Sounds: Present: S1 & S2. Absent: rub, click - Extremities Extremities: pulses symmetrical, No edema Peripheral Pulses: within normal limits - Abdominal General gastrointestinal: Present: soft, non-tender, non-distended, normal bowel sounds Male genitourinary: Present: normal - Integumentary Integumentary: Present: clear, warm, dry - Musculoskeletal Musculoskeletal: gait normal, strength equal bilaterally - Psychiatric Psychiatric: appropriate mood/affect, intact judgment & insight - Neurologic Neurologic: CNII-XII intact, moves all extremities Plan Follow up with: [facility] [Provider Group] - 7 Days PRIMARY CARE, [Primary Care Provider] - 3-5 Days Forms: Work/School Release Form
[2017-07-30 13:41] VITALS: BP 123/75
== END 2017-07-30 15:06 | disposition home or self-care (01) | DRG 896 ==
LOC: ED 06:45 → 4A 23:16
PROVIDERS: ADMIT Internal Medicine; ATTEND Internal Medicine
DX: F15.93 Other stimulant use, unspecified with withdrawal (principal); G92 Toxic encephalopathy; M62.82 Rhabdomyolysis; E86.0 Dehydration; F19.10 Other psychoactive substance abuse, uncomplicated; Z71.51 Drug abuse counseling and surveillance of drug abuser
CPT/HCPCS: 36415; 70450; 80048; 80053; 80307; 80320; 81001; 82140; 82550; 83036; 84443; 85025; 93005; 93010; G0480; J0515; J1200; J1644; J2060; J2930; J7030; J7042

== ENCOUNTER 2018-10-23 10:28 | Emergency (ER) | payer OTHER ==
[2018-10-23 10:44] VITALS: BP 128/65
--- NOTE | 2018-10-23 11:13 | Emergency Department Report ---
ED Rash HPI - HPI Chief Complaint: Skin Rash Stated Complaint: STAPH INFECTION Time Seen by Provider: 10/23/18 10:52 Duration: 1 week Location: Head (right side of face) Suspected Cause: Unknown Rash Symptoms: No Itching, No Facial Swelling, No Tongue/Oral Swelling, No Breathing Difficulties, No Choking Sensation, No Wheezing/Dyspnea, No Peeling, No Blistering, No Fever, No Lightheaded, No Malaise, No Myalgias Severity: mild Other History: [id number] male who presents to the emergency room with redness and drainage to right cheek for 1 week. Patient states he was diagnosed with staph on the left side of face a few weeks ago and completed antibiotics. Patient states he was diagnosed with staph at [facility] in May. Patient states rash improved but were turned to the opposite side of face. He noticed some drainage last week. He denies fever, numbness or tingling, or swelling. ED Review of Systems ROS: Stated complaint: STAPH INFECTION Other details as noted in HPI Constitutional: denies: chills, fever Respiratory: denies: cough, shortness of breath, wheezing Cardiovascular: denies: chest pain, palpitations Skin: rash. denies: lesions Neurological: denies: headache, weakness, paresthesias Psychiatric: denies: anxiety, depression ED Past Medical Hx - Past Medical History Previous Medical History?: Yes Hx Congestive Heart Failure: No Hx Diabetes: No Hx Seizures: Yes (klonpin withdraw/cocaine + on 05/22/16 visit) Hx Asthma: No Additional medical history: pneumothorax - Surgical History Past Surgical History?: Yes Additional Surgical History: R. shoulder repair - Social History Smoking Status: Current Some Day Smoker Substance Use Type: Alcohol, Marijuana, Prescribed - Medications Home Medications: Home Medications Medication Instructions Recorded Confirmed Last Taken Type Clindamycin [Clindamycin CAP] 300 mg PO Q8H 14 Days #42 cap 10/23/18 Unknown Rx Sulfamethoxazole/Trimethoprim 1 each PO BID #28 tablet 10/23/18 Unknown Rx [Bactrim DS TAB] Rash Exam - Exam General: Vital signs noted. No distress. Alert and acting appropriately. HEENT: No Periorbital Edema, No Conjuctival Injection, No Chemosis, No Perioral Edema, No Tongue Edema, No Uvular Edema, No Compromised Airway, No Drooling Lungs: Yes Good Air Exchange (Normal Breath Sounds), No Wheezes, No Ronchi, No Stridor, No Cough, No Labored Respirations, No Retractions, No Use of Accessory Muscles, No Other Abnormal Lung Sounds Heart: Yes Regular, No Murmur Skin: Yes Tenderness, Yes Erythema (2-3 cm erythematous area to right maxilla, tenderness, no drainage), No Urticarial Rash, No Maculopapular Rash, No Morbilliform rash, No Bulla(e), No Excoriations, No Weeping, No Edema, No Encrustations ED Course Vital Signs 10/23/18 10:42 Temperature 98.5 F Pulse Rate 60 Respiratory 16 Rate Blood Pressure 128/65 O2 Sat by Pulse 99 Oximetry ED Medical Decision Making - Medical Decision Making Patient was examined by me. Vitals are normal and patient is in no acute distress. There is an erythematous area to right maxillary that could possibly be a staph infection or cellulitis. Will start bactrim and clindamycin to cover both. Patient informed of results. Follow up with PCP Dr. Noel at [facility] [place] [facility]. Plan discussed with patient to discharge home and treat outpatient. He agrees with ER plan. Patient discharged home in stable condition. Follow up with PCP in 2-3 days. Critical care attestation.: If time is entered above; I have spent that time in minutes in the direct care of this critically ill patient, excluding procedure time. ED Disposition Clinical Impression: Facial rash, Cellulitis of face Disposition: DC-01 TO HOME OR SELFCARE Is pt being admited?: No Does the pt Need Aspirin: No Condition: Stable Instructions: Cellulitis (ED) Additional Instructions: Complete full course of antibiotics as prescribed. Follow-up with her primary care doctor at [facility] in 3-5 days. Return to the emergency room if worsening symptoms. Prescriptions: Sulfamethoxazole/Trimethoprim [Bactrim DS TAB] 1 each PO BID #28 tablet Clindamycin [Clindamycin CAP] 300 mg PO Q8H 14 Days #42 cap Referrals: GO NOEL MD [Referring] - 3-5 Days Forms: Work/School Release Form(ED) Time of Disposition: 11:24
== END 2018-10-23 11:53 | disposition home or self-care (01) ==
LOC: ED 10:28
DX: L03.211 Cellulitis of face (principal); F17.200 Nicotine dependence, unspecified, uncomplicated; F12.90 Cannabis use, unspecified, uncomplicated; Z79.899 Other long term (current) drug therapy
CPT/HCPCS: 99282

== ENCOUNTER 2019-03-09 17:08 | Emergency (ER) | payer OTHER ==
[2019-03-09 17:30] VITALS: BP 159/90
== END 2019-03-09 20:05 | disposition left against medical advice (07) ==
LOC: ED 17:08
DX: T65.91XA Toxic effect of unspecified substance, accidental (unintentional), initial encounter (principal); X58.XXXA Exposure to other specified factors, initial encounter; Z53.21 Procedure and treatment not carried out due to patient leaving prior to being seen by health care provider